=== PATIENT | female | born 1940 | race Caucasian/White ===

== ENCOUNTER → 2017-02-16 | Outpatient (CLI) | payer OTHER, BC ==
[~2017-02-16] VITALS: Ht 160 cm; Wt 61.2 kg
[~2017-02-16] MED LIST: ASCORBIC ACID500 M3 PO; ASPIR-LOW81 MG PO; ASPIRIN81 M2 PO; BASAGLAR K100 UNIT/1 SC; COLESTIPOL HCL1 GM PO; CYMBALTA20 MG PO; DITROPAN5 MG PO; ERGOCALCIF50000 UNIT PO; ESCITALOPRAM OX20 MG PO; FLAGYL500 MG PO; FLORASTOR250 MG PO; LANTUS 3 M100 UNITS1 SC; LEVAQUIN500 MG PO; LEXAPRO20 MG PO; LISINOPRIL5 MG PO; MATZIM LA360 MG PO; MIRALAX255 GM PO; NAPROSYN375 MG PO; OMEPRAZOLE40 M1 PO; ONDANSETRON HCL4 MG PO; OXAYDO5 MG PO; OXYCODONE HCL5 MG PO; PEPCID20 MG PO; PREDNISONE20 MG PO; PRESERVISION T1 EACH PO; PROAIR HFA8.5 GM IH; QUESTRAN PACKET4 GM PO; ROXICODONE5 MG PO; SIMVASTATIN10 MG PO; TRAZODONE HCL50 MG PO; VITAMIN D2 PO
[2017-02-16 11:13] LABS: HEMATOCRIT 40.1 % (36.0-46.0); MCH 30.4 PG (29.0-34.0); MCHC 34.9 G/DL (30.0-36.0); RBC DIS.WIDTH-CV 18.9 % (11.8-14.6); RBC DIS.WIDTH-SD 57.5 % (39-53); RED BLOOD COUNT 4.61 M/uL (3.80-5.20); WHITE BLOOD COUNT 12.8 K/uL (4.1-10.2)
[2017-02-16 11:40] LABS: POINT-OF-CARE METER ID UU13113694
[2017-02-16 11:46] LABS: ALKALINE PHOSPHATASE 540 IU/L (3-129); ANION GAP 7 MEQ/L (2-14); CHLORIDE 106 MEQ/L (99-109); GFR ESTIMATE (CALCULATED) 42 mL/min/; GLUCOSE 87 mg/dL (70-99); HEMATOLOGY COMMENT 1 SN; PLAT.SUFFICIENCY ADEQUATE; PLATELET COUNT 391 K/uL (156-360); POTASSIUM 3.5 MEQ/L (3.7-5.4); SAMPLE HEMOLYSIS CHECK 0; SAMPLE ICTERIC CHECK 2; SAMPLE LIPEMIA CHECK 0; SODIUM 140 MEQ/L (136-147); TOTAL BILIRUBIN 9.3 MG/DL (0.0-1.0); UREA NITROGEN (BUN) 13 mg/dL (9-23)
[2017-02-16 12:40] LABS: IRON 79 MCG/DL (35-150)
[2017-02-16 12:58] LABS: FERRITIN 264 NG/ML (10-291)
[2017-02-16 12:59] LABS: HBSG INDEX 0.22; HPCA INDEX 0.08
[2017-02-16 13:00] LABS: ANTI-HEPATITIS A VIRUS (IGM) Nonreactive; HAV INDEX 0.13
[2017-02-16 13:01] LABS: ANTI-HEPATITIS B CORE (IGM) Nonreactive; HBC IgM INDEX 0.09
[2017-02-16 13:34] LABS: DIRECT BILIRUBIN 5.8 mg/dL (0.0-0.3)
[2017-02-16 14:38] LABS: POINT-OF-CARE METER ID UU13113819
[2017-02-16 15:05] LABS: POINT-OF-CARE METER ID UU13113819
[2017-02-17 15:08] LABS: ALPHA-1-ANTITRYPSIN+ 190 mg/dL (83-199)
== END | disposition home or self-care (01) ==
LOC: AMB 10:27
PROVIDERS: Anesthesiology; Internal Medicine Gastroenterology
DX: K63.89 Other specified diseases of intestine (principal); K83.1 Obstruction of bile duct; R17 Unspecified jaundice; Z85.07 Personal history of malignant neoplasm of pancreas; I12.9 Hypertensive chronic kidney disease with stage 1 through stage 4 chronic kidney disease, or unspecified chronic kidney disease; E11.22 Type 2 diabetes mellitus with diabetic chronic kidney disease; N18.3 Chronic kidney disease, stage 3 (moderate); E78.5 Hyperlipidemia, unspecified; E21.3 Hyperparathyroidism, unspecified; Z87.891 Personal history of nicotine dependence; Z79.82 Long term (current) use of aspirin; Z79.891 Long term (current) use of opiate analgesic
CPT/HCPCS: 80053; 80074; 82103 90; 82247; 82248; 82378; 82390; 82728; 82948; 83010 90; 83540; 84466; 85027; 86038; 86301 90; 87081; 88305; 93005; C1726; J0330; J2405; J3010

== ENCOUNTER → 2017-02-22 | Outpatient (CLI) | payer OTHER, BC ==
[2017-02-22 10:46] LABS: PROTHROMBIN TIME 10.5 (9.2-11.2); PTT 25.8 (25-32)
== END | disposition home or self-care (01) ==
LOC: OPR 09:44 → EDSTATUS 10:00 → OPR 10:00
PROVIDERS: Internal Medicine Gastroenterology
PROC: 0F753DZ Dilation of Right Hepatic Duct with Intraluminal Device, Percutaneous Approach (ICD-10-PCS; principal; 2017-02-22)
DX: K83.1 Obstruction of bile duct (principal); R11.0 Nausea; R17 Unspecified jaundice; I12.9 Hypertensive chronic kidney disease with stage 1 through stage 4 chronic kidney disease, or unspecified chronic kidney disease; E11.22 Type 2 diabetes mellitus with diabetic chronic kidney disease; Z85.07 Personal history of malignant neoplasm of pancreas; N18.9 Chronic kidney disease, unspecified; E78.5 Hyperlipidemia, unspecified; Z87.891 Personal history of nicotine dependence; E21.1 Secondary hyperparathyroidism, not elsewhere classified; Z79.82 Long term (current) use of aspirin; Z79.899 Other long term (current) drug therapy
CPT/HCPCS: 47540; 85610; 85730; C1729; C1769; C1894; J1200; J2250; J2310; J2405; J3010

== ENCOUNTER 2017-02-27 12:42 | Inpatient (IN) | payer OTHER, BC ==
[~2017-02-27] VITALS: Ht 160 cm; Wt 61.6 kg
[2017-02-27 13:14] LABS: POINT-OF-CARE METER ID UU13113778
[2017-02-27 14:17] LABS: HEMATOCRIT 38.2 % (36.0-46.0); MCH 29.4 PG (29.0-34.0); MCHC 34.3 G/DL (30.0-36.0); MCV 85.8 FL (83-99); MEAN PLAT.VOLUME 11.1 uM^3 (9.5-12.4); NRBC (%) 0.2 /100 WBC (0-0); PLATELET COUNT 420 K/uL (156-360); RBC DIS.WIDTH-CV 17.7 % (11.8-14.6); RBC DIS.WIDTH-SD 53.2 % (39-53); RED BLOOD COUNT 4.45 M/uL (3.80-5.20); WHITE BLOOD COUNT 16.4 K/uL (4.1-10.2)
[2017-02-27 14:28] LABS: CHLORIDE 101 mEq/L (99-109); POTASSIUM 3.5 mEq/L (3.7-5.4); SODIUM 134 mEq/L (136-147)
[2017-02-27 14:30] LABS: GLUCOSE 229 mg/dL (70-99)
[2017-02-27 14:31] LABS: ANION GAP 6 MEQ/L (2-14)
[2017-02-27 14:32] LABS: TOTAL BILIRUBIN 16.9 mg/dL (0.0-1.0)
[2017-02-27 14:33] LABS: ALKALINE PHOSPHATASE 591 IU/L (3-129); GFR ESTIMATE (CALCULATED) 46 mL/min/
[2017-02-27 14:35] LABS: UREA NITROGEN (BUN) 23 mg/dL (9-23)
[2017-02-27 17:40] LABS: ADD MIUA? YES; BILIRUBIN MODERATE; BLOOD NEGATIVE; COLOR AMBER ((YELLOW)); GLUCOSE (STRIP) NEGATIVE; KETONES NEGATIVE; LEUKOCYTES NEGATIVE; NITRITE NEGATIVE; PROTEIN (STRIP) NEGATIVE; SPECIFIC GRAVITY 1.034 (1.000-1.030)
[2017-02-27 17:46] LABS: BACTERIA RARE /HPF; CALCIUM OXALATE CRYSTALS 2+ /HPF; EPITHELIAL CELLS RARE /HPF; MUCUS TRACE /LPF; RED BLOOD CELLS 0-5 /HPF (0-5); UCUL ADDED? NO
[2017-02-27 19:16] LABS: ICTOTEST POSITIVE
[2017-02-27 21:53] VITALS: BP 159/74
[2017-02-27 23:58] LABS: POINT-OF-CARE METER ID UU13113725; POINT-OF-CARE USER ID 611181321
[2017-02-28 02:45] VITALS: BP 130/61
[2017-02-28 06:29] LABS: HEMATOCRIT 33.3 % (36.0-46.0); MCH 29.8 PG (29.0-34.0); MCHC 34.2 G/DL (30.0-36.0); MCV 87.2 FL (83-99); NRBC (%) 0.2 /100 WBC (0-0); RBC DIS.WIDTH-SD 55.4 % (39-53); RED BLOOD COUNT 3.82 M/uL (3.80-5.20); WHITE BLOOD COUNT 16.1 K/uL (4.1-10.2)
[2017-02-28 06:55] LABS: ALKALINE PHOSPHATASE 439 IU/L (3-129); ANION GAP 7 MEQ/L (2-14); CHLORIDE 103 MEQ/L (99-109); GFR ESTIMATE (CALCULATED) 46 mL/min/; SAMPLE HEMOLYSIS CHECK 0; SAMPLE ICTERIC CHECK 3; SAMPLE LIPEMIA CHECK 0; SODIUM 136 MEQ/L (136-147); TOTAL BILIRUBIN 12.8 MG/DL (0.0-1.0); UREA NITROGEN (BUN) 18 mg/dL (9-23)
[2017-02-28 07:00] LABS: GLUCOSE 119 mg/dL (70-99)
[2017-02-28 07:24] VITALS: BP 186/76
[2017-02-28 07:35] LABS: PLATELET COUNT 395 K/uL (156-360)
[2017-02-28 13:29] VITALS: BP 158/90
[2017-02-28] MEDS ORDERED: LO-DOSE ASPIRIN81 M1 PO (15:38)
[2017-02-28] MEDS ORDERED: CYMBALTA30 MG PO (15:38)
[2017-02-28 15:43] VITALS: BP 158/74
[2017-02-28 21:01] VITALS: BP 149/69
[2017-02-28 21:57] LABS: POINT-OF-CARE METER ID UU13113725
[2017-03-01 01:01] VITALS: BP 151/67
[2017-03-01 03:00] LABS: ADD MIUA? YES; BILIRUBIN SMALL; BLOOD NEGATIVE; COLOR AMBER ((YELLOW)); GLUCOSE (STRIP) NEGATIVE; KETONES NEGATIVE; LEUKOCYTES SMALL; NITRITE NEGATIVE; PROTEIN (STRIP) NEGATIVE; SPECIFIC GRAVITY 1.017 (1.000-1.030); UROBILINOGEN 0.2 MG/DL (0.2-1.0)
[2017-03-01 03:03] LABS: BACTERIA NONE SEEN /HPF; EPITHELIAL CELLS RARE /HPF; MUCUS TRACE /LPF; RED BLOOD CELLS 15-20 /HPF (0-5); UCUL ADDED? NO
[2017-03-01 06:34] LABS: POINT-OF-CARE METER ID UU13113725
[2017-03-01 07:02] LABS: HEMATOCRIT 32.1 % (36.0-46.0); MCH 30.1 PG (29.0-34.0); MCHC 33.6 G/DL (30.0-36.0); MCV 89.4 FL (83-99); NRBC (%) 0.2 /100 WBC (0-0); RBC DIS.WIDTH-SD 58.4 % (39-53); RED BLOOD COUNT 3.59 M/uL (3.80-5.20); WHITE BLOOD COUNT 17.4 K/uL (4.1-10.2)
[2017-03-01 07:13] VITALS: BP 140/76
[2017-03-01 07:23] LABS: ALKALINE PHOSPHATASE 374 IU/L (3-129); ANION GAP 7 MEQ/L (2-14); CHLORIDE 103 MEQ/L (99-109); GFR ESTIMATE (CALCULATED) 46 mL/min/; GLUCOSE 155 mg/dL (70-99); MAGNESIUM 1.9 mg/dl (1.3-2.7); SAMPLE HEMOLYSIS CHECK 0; SAMPLE ICTERIC CHECK 3; SAMPLE LIPEMIA CHECK 0; SODIUM 136 MEQ/L (136-147); TOTAL BILIRUBIN 12.4 MG/DL (0.0-1.0); UREA NITROGEN (BUN) 13 mg/dL (9-23)
[2017-03-01 07:31] LABS: MEAN PLAT.VOLUME 11.5 uM^3 (9.5-12.4); PLAT.SUFFICIENCY INCREASED; PLATELET COUNT 369 K/uL (156-360)
[2017-03-01 11:23] VITALS: BP 165/71
[2017-03-01] MEDS ORDERED: ZOSYN 3.3753.375 GM IV (14:45)
[2017-03-01 15:00] VITALS: BP 138/79
[2017-03-01 19:24] VITALS: BP 165/72
== END 2017-03-01 22:02 | disposition short-term general hospital (02) | DRG 907 ==
LOC: EME 12:42 → EDOF 20:03 → 5EAST 20:03
PROVIDERS: Internal Medicine
DX: T85.698A Other mechanical complication of other specified internal prosthetic devices, implants and grafts, initial encounter (principal); R17 Unspecified jaundice; E87.1 Hypo-osmolality and hyponatremia; F33.9 Major depressive disorder, recurrent, unspecified; K83.1 Obstruction of bile duct; K86.89 Other specified diseases of pancreas; E11.9 Type 2 diabetes mellitus without complications; E78.5 Hyperlipidemia, unspecified; E87.6 Hypokalemia; I10 Essential (primary) hypertension; K21.9 Gastro-esophageal reflux disease without esophagitis; F41.9 Anxiety disorder, unspecified; L29.9 Pruritus, unspecified; Z79.4 Long term (current) use of insulin; Z87.891 Personal history of nicotine dependence; Z85.07 Personal history of malignant neoplasm of pancreas; Z79.82 Long term (current) use of aspirin; Z86.73 Personal history of transient ischemic attack (TIA), and cerebral infarction without residual deficits; Z90.49 Acquired absence of other specified parts of digestive tract; Z96.612 Presence of left artificial shoulder joint; Z96.653 Presence of artificial knee joint, bilateral
CPT/HCPCS: 47535; 74177; 74183; 80053; 81003; 82140; 82948; 83735; 85027; 87040; 99281; 99285; C1729; C1769; J1200; J1644; J1815; J2250; J2405; J2543; J3010; J3480; J7030; J7050; S0028

== ENCOUNTER 2017-03-12 00:23 | Emergency (ER) | payer OTHER, BC ==
[~2017-03-12] VITALS: Ht 160 cm; Wt 60.0 kg
[~2017-03-12 00:23] MED LIST changes: +CYMBALTA30 MG PO; +LO-DOSE ASPIRIN81 M1 PO; +ZOSYN 3.3753.375 GM IV
[2017-03-12 01:13] LABS: HEMATOCRIT 36.2 % (36.0-46.0); MCH 29.5 PG (29.0-34.0); MCHC 32.6 G/DL (30.0-36.0); MCV 90.5 FL (83-99); MEAN PLAT.VOLUME 9.9 uM^3 (9.5-12.4); RBC DIS.WIDTH-SD 50.1 % (39-53); WHITE BLOOD COUNT 13.7 K/uL (4.1-10.2)
[2017-03-12 01:14] LABS: PLATELET COUNT 558 K/uL (156-360)
[2017-03-12 01:19] LABS: CHLORIDE 99 mEq/L (99-109); POTASSIUM 4.4 mEq/L (3.7-5.4); SODIUM 133 mEq/L (136-147)
[2017-03-12 01:21] LABS: GLUCOSE 283 mg/dL (70-99)
[2017-03-12 01:23] LABS: ANION GAP 8 MEQ/L (2-14)
[2017-03-12 01:25] LABS: ALKALINE PHOSPHATASE 218 IU/L (3-129); GFR ESTIMATE (CALCULATED) 42 mL/min/
[2017-03-12 01:26] LABS: UREA NITROGEN (BUN) 14 mg/dL (9-23)
[2017-03-12 01:27] LABS: DIRECT BILIRUBIN 3.9 mg/dL (0.0-0.3)
[2017-03-12 14:29] VITALS: BP 144/84
== END 2017-03-12 15:16 ==
LOC: EME → EDBD 00:23 → EME 15:16
PROVIDERS: Emergency Medicine
PROC: 0F2BX0Z Change Drainage Device in Hepatobiliary Duct, External Approach (ICD-10-PCS; principal; 2017-03-12)
DX: Z48.03 Encounter for change or removal of drains (principal); I10 Essential (primary) hypertension; E11.9 Type 2 diabetes mellitus without complications; E78.5 Hyperlipidemia, unspecified; K21.9 Gastro-esophageal reflux disease without esophagitis; Z87.891 Personal history of nicotine dependence; Z90.49 Acquired absence of other specified parts of digestive tract; Z85.07 Personal history of malignant neoplasm of pancreas
CPT/HCPCS: 47536; 74000; 80053; 82248; 85027; 99281; 99284; C1729; C1769; J0696; J3010; J7050

== ENCOUNTER 2017-03-25 16:04 | Inpatient (IN) | payer OTHER, BC ==
[~2017-03-25] VITALS: Ht 160 cm; Wt 57.8 kg
[2017-03-25 17:00] LABS: CHLORIDE 94 mEq/L (99-109); POTASSIUM 4.9 mEq/L (3.7-5.4)
[2017-03-25 17:03] LABS: ANION GAP 10 MEQ/L (2-14)
[2017-03-25 17:04] LABS: TOTAL BILIRUBIN 3.2 mg/dL (0.0-1.0)
[2017-03-25 17:05] LABS: ALKALINE PHOSPHATASE 220 IU/L (3-129)
[2017-03-25 17:06] LABS: GFR ESTIMATE (CALCULATED) 17 mL/min/
[2017-03-25 17:07] LABS: UREA NITROGEN (BUN) 50 mg/dL (9-23)
[2017-03-25 17:10] LABS: GLUCOSE 703 mg/dL (70-99); SODIUM 119 mEq/L (136-147)
[2017-03-25 17:13] LABS: GLUCOSE 708 mg/dL (70-99)
[2017-03-25 17:15] LABS: HEMATOCRIT 42.6 % (36.0-46.0); MCH 29.1 PG (29.0-34.0); MCHC 33.6 G/DL (30.0-36.0); MCV 86.6 FL (83-99); MEAN PLAT.VOLUME 10.8 uM^3 (9.5-12.4); NRBC (%) 0.2 /100 WBC (0-0); PLATELET COUNT 469 K/uL (156-360); RBC DIS.WIDTH-CV 14.1 % (11.8-14.6); RBC DIS.WIDTH-SD 44.8 % (39-53); RED BLOOD COUNT 4.92 M/uL (3.80-5.20); WHITE BLOOD COUNT 15.7 K/uL (4.1-10.2)
[2017-03-25 17:30] LABS: ADD MIUA? YES; BILIRUBIN NEGATIVE; BLOOD NEGATIVE; COLOR YELLOW ((YELLOW)); GLUCOSE (STRIP) >=500; KETONES NEGATIVE; LEUKOCYTES LARGE; NITRITE NEGATIVE; PROTEIN (STRIP) 30; SPECIFIC GRAVITY 1.017 (1.000-1.030); UROBILINOGEN 0.2 MG/DL (0.2-1.0)
[2017-03-25 17:36] LABS: BACTERIA RARE /HPF; BUDDING YEAST 1+; EPITHELIAL CELLS RARE /HPF; HYALINE CASTS 0-5 /LPF; MUCUS 4+ /LPF; RED BLOOD CELLS 0-5 /HPF (0-5); UCUL ADDED? YES; UNCLASSIFIED CRYSTALS 2+ /HPF; WHITE BLOOD CELLS TNTC /HPF (0-5); WHITE BLOOD CELLS CLUMP FEW /HPF (0-5)
[2017-03-25 17:54] LABS: SAMPLE HEMOLYSIS CHECK 0; SAMPLE ICTERIC CHECK 1; SAMPLE LIPEMIA CHECK 0
[2017-03-25] MEDS ORDERED: LANTUS 3 M100 UNITS1 SC (18:45)
[2017-03-25] MEDS ORDERED: NOVOLOG PE100 UNITS/ SC (18:46)
[2017-03-25 19:13] LABS: POINT-OF-CARE METER ID UU13113747
[2017-03-25] MEDS ORDERED: ZOCOR10 MG PO (19:30)
[2017-03-25] MEDS ORDERED: GAVILAX17 GM PO (19:32)
[2017-03-25] MEDS ORDERED: NYSTATIN15 GM TP (19:33)
[2017-03-25] MEDS ORDERED: ZOFRAN4 MG PO (19:33)
[2017-03-25] MEDS ORDERED: CHOLESTYRAMINE L4 GM PO (19:35)
[2017-03-25] MEDS ORDERED: LANTUS 3 M100 UNITS1 SQ (19:39)
[2017-03-25 20:17] LABS: POINT-OF-CARE METER ID UU13113747
[2017-03-25 20:54] LABS: POINT-OF-CARE METER ID UU13113747
[2017-03-25 21:27] VITALS: BP 140/65
[2017-03-25 21:47] LABS: CARBON DIOXIDE (BICARBONATE) 20.2 MEQ/L (20-31)
[2017-03-25 22:19] LABS: ALKALINE PHOSPHATASE 187 IU/L (3-129); ANION GAP 9 MEQ/L (2-14); CHLORIDE 101 MEQ/L (99-109); GLUCOSE 360 mg/dL (70-99); MAGNESIUM 2.1 mg/dl (1.3-2.7); POTASSIUM 4.1 MEQ/L (3.7-5.4); SAMPLE HEMOLYSIS CHECK 0; SAMPLE ICTERIC CHECK 0; SAMPLE LIPEMIA CHECK 0; UREA NITROGEN (BUN) 46 mg/dL (9-23)
[2017-03-25 22:21] LABS: GFR ESTIMATE (CALCULATED) 27 mL/min/; SODIUM 127 MEQ/L (136-147); TOTAL BILIRUBIN 3.1 MG/DL (0.0-1.0)
[2017-03-25 22:28] LABS: BASE EXCESS -9.2 mEq/L (-3 to +3); BICARBONATE 16.2 mEq/L (22-26); CARBOXY HGB 2.1 % (0-5); COMMENTS - BLOOD GASES A+C+; DEVICE RA; METHEMOGLOBIN 1.6 % (0-1.5); PCO2 33 mm Hg (35-45); PO2 71 mm Hg (80-100); SITE RR
[2017-03-26] VITALS (7 sets, daily range): BP systolic 121–152; BP diastolic 59–70
[2017-03-26 01:32] LABS: METH RESISTANT S AUREUS PCR POSITIVE (NEGATIVE)
[2017-03-26 01:39] LABS: PROBE CHECK PASS
[2017-03-26 02:29] LABS: POTASSIUM 3.9 mEq/L (3.7-5.4); SODIUM 132 mEq/L (136-147)
[2017-03-26 02:30] LABS: MAGNESIUM 1.9 mg/dL (1.3-2.7)
[2017-03-26 02:33] LABS: ANION GAP 7 MEQ/L (2-14)
[2017-03-26 02:34] LABS: TOTAL BILIRUBIN 2.8 mg/dL (0.0-1.0)
[2017-03-26 02:35] LABS: ALKALINE PHOSPHATASE 182 IU/L (3-129); GFR ESTIMATE (CALCULATED) 27 mL/min/
[2017-03-26 02:36] LABS: CHLORIDE 109 mEq/L (99-109); GLUCOSE 168 mg/dL (70-99)
[2017-03-26 02:37] LABS: UREA NITROGEN (BUN) 44 mg/dL (9-23)
[2017-03-26 02:39] LABS: POINT-OF-CARE METER ID UU14174216
[2017-03-26 04:21] LABS: POINT-OF-CARE METER ID UU14174216
[2017-03-26 05:45] LABS: BASOPHIL COUNT 0.1 K/uL (0-0.1); EOSINOPHIL (%) 3.1 % (0-5); EOSINOPHIL COUNT 0.7 K/uL (0-0.3); HEMATOCRIT 36.6 % (36.0-46.0); IMMATURE GRANULOCYTE (%) 1.3 % (0.0-0.7); IMMATURE GRANULOCYTE COUNT 0.3 K/uL; INSTRUMENT ABS NEUTROPHIL CT 13.9 K/uL; LYMPHOCYTE COUNT 3.7 K/uL (1.0-2.8); MCHC 34.7 G/DL (30.0-36.0); MCV 86.3 FL (83-99); MEAN PLAT.VOLUME 10.8 uM^3 (9.5-12.4); MONOCYTE (%) 10.5 % (3-12); MONOCYTE COUNT 2.2 K/uL (0-0.8); NEUTROPHIL (%) 66.8 % (45-76); NEUTROPHIL COUNT 13.9 K/uL (1.8-6.4); PLATELET COUNT 421 K/uL (156-360); RBC DIS.WIDTH-CV 13.8 % (11.8-14.6); RBC DIS.WIDTH-SD 43.2 % (39-53); RED BLOOD COUNT 4.24 M/uL (3.80-5.20); WHITE BLOOD COUNT 20.7 K/uL (4.1-10.2)
[2017-03-26 06:18] LABS: ALKALINE PHOSPHATASE 156 IU/L (3-129); ANION GAP 8 MEQ/L (2-14); CHLORIDE 108 MEQ/L (99-109); GFR ESTIMATE (CALCULATED) 33 mL/min/; POTASSIUM 4.2 MEQ/L (3.7-5.4); SAMPLE HEMOLYSIS CHECK 0; SAMPLE ICTERIC CHECK 0; SAMPLE LIPEMIA CHECK 0; SODIUM 134 MEQ/L (136-147); TOTAL BILIRUBIN 2.7 MG/DL (0.0-1.0); UREA NITROGEN (BUN) 41 mg/dL (9-23)
[2017-03-26 06:19] LABS: GLUCOSE 85 mg/dL (70-99)
[2017-03-26 08:17] LABS: POINT-OF-CARE USER ID ENVKC36
[2017-03-26 11:35] LABS: POINT-OF-CARE METER ID UU13113698
[2017-03-26 16:40] LABS: POINT-OF-CARE USER ID ENVKC36
[2017-03-26 21:24] LABS: POINT-OF-CARE METER ID UU13113698
[2017-03-27 04:03] VITALS: BP 121/67
[2017-03-27 06:12] LABS: BASOPHIL COUNT 0.1 K/uL (0-0.1); EOSINOPHIL (%) 4.2 % (0-5); EOSINOPHIL COUNT 0.7 K/uL (0-0.3); HEMATOCRIT 36.4 % (36.0-46.0); IMMATURE GRANULOCYTE (%) 1.6 % (0.0-0.7); IMMATURE GRANULOCYTE COUNT 0.3 K/uL; LYMPHOCYTE COUNT 3.9 K/uL (1.0-2.8); MCH 28.7 PG (29.0-34.0); MCHC 33.2 G/DL (30.0-36.0); MCV 86.3 FL (83-99); MEAN PLAT.VOLUME 10.3 uM^3 (9.5-12.4); MONOCYTE (%) 11.1 % (3-12); MONOCYTE COUNT 1.9 K/uL (0-0.8); NEUTROPHIL (%) 59.4 % (45-76); NRBC (%) 0.1 /100 WBC (0-0); PLATELET COUNT 411 K/uL (156-360); RBC DIS.WIDTH-CV 13.8 % (11.8-14.6); RBC DIS.WIDTH-SD 43.1 % (39-53); RED BLOOD COUNT 4.22 M/uL (3.80-5.20); WHITE BLOOD COUNT 16.9 K/uL (4.1-10.2)
[2017-03-27 07:01] LABS: ALKALINE PHOSPHATASE 133 IU/L (3-129); ANION GAP 6 MEQ/L (2-14); CHLORIDE 109 MEQ/L (99-109); GFR ESTIMATE (CALCULATED) 36 mL/min/; MAGNESIUM 1.8 mg/dl (1.3-2.7); POTASSIUM 4.4 MEQ/L (3.7-5.4); SAMPLE HEMOLYSIS CHECK 0; SAMPLE ICTERIC CHECK 0; SAMPLE LIPEMIA CHECK 0; SODIUM 134 MEQ/L (136-147); TOTAL BILIRUBIN 2.3 MG/DL (0.0-1.0); UREA NITROGEN (BUN) 28 mg/dL (9-23)
[2017-03-27 07:03] LABS: GLUCOSE 151 mg/dL (70-99)
[2017-03-27 07:28] VITALS: BP 146/75
[2017-03-27 08:25] LABS: POINT-OF-CARE METER ID UU13113781
[2017-03-27 11:35] VITALS: BP 142/80
[2017-03-27 12:03] LABS: POINT-OF-CARE METER ID UU13113781
[2017-03-27 15:48] VITALS: BP 155/68
[2017-03-27 20:13] VITALS: BP 152/64
[2017-03-27 23:53] VITALS: BP 142/64
[2017-03-28 04:01] VITALS: BP 150/66
[2017-03-28 07:07] LABS: ANION GAP 6 MEQ/L (2-14); CHLORIDE 111 MEQ/L (99-109); GFR ESTIMATE (CALCULATED) 42 mL/min/; GLUCOSE 100 mg/dL (70-99); POTASSIUM 3.9 MEQ/L (3.7-5.4); SAMPLE HEMOLYSIS CHECK 0; SAMPLE ICTERIC CHECK 0; SAMPLE LIPEMIA CHECK 0; SODIUM 138 MEQ/L (136-147); UREA NITROGEN (BUN) 18 mg/dL (9-23)
[2017-03-28 07:15] VITALS: BP 150/72
[2017-03-28 10:44] LABS: Estimated Average Glucose 180 mg/dL (70-123); HEMOGLOBIN A1c (GLYCOHEMOGLOB) 7.9 % HGB (Below 5.7)
[2017-03-28 18:27] VITALS: BP 168/60
[2017-03-28 21:43] LABS: POINT-OF-CARE METER ID UU14208750
[2017-03-28 23:51] VITALS: BP 145/70
[2017-03-29 06:55] LABS: BASOPHIL COUNT 0.1 K/uL (0-0.1); EOSINOPHIL (%) 5.1 % (0-5); EOSINOPHIL COUNT 0.8 K/uL (0-0.3); HEMATOCRIT 39.5 % (36.0-46.0); IMMATURE GRANULOCYTE (%) 2.7 % (0.0-0.7); IMMATURE GRANULOCYTE COUNT 0.4 K/uL; INSTRUMENT ABS NEUTROPHIL CT 9.2 K/uL; LYMPHOCYTE COUNT 3.6 K/uL (1.0-2.8); MCH 28.6 PG (29.0-34.0); MCHC 33.4 G/DL (30.0-36.0); MCV 85.7 FL (83-99); MEAN PLAT.VOLUME 10.5 uM^3 (9.5-12.4); MONOCYTE COUNT 1.8 K/uL (0-0.8); NEUTROPHIL (%) 57.6 % (45-76); NEUTROPHIL COUNT 9.2 K/uL (1.8-6.4); NRBC (%) 0.1 /100 WBC (0-0); PLATELET COUNT 434 K/uL (156-360); RBC DIS.WIDTH-CV 14.2 % (11.8-14.6); RBC DIS.WIDTH-SD 44.2 % (39-53); RED BLOOD COUNT 4.61 M/uL (3.80-5.20); WHITE BLOOD COUNT 15.9 K/uL (4.1-10.2)
[2017-03-29 07:00] VITALS: BP 178/82
[2017-03-29 07:24] LABS: ALKALINE PHOSPHATASE 118 IU/L (3-129); ANION GAP 8 MEQ/L (2-14); CHLORIDE 109 MEQ/L (99-109); GFR ESTIMATE (CALCULATED) 51 mL/min/; POTASSIUM 4.1 MEQ/L (3.7-5.4); SAMPLE HEMOLYSIS CHECK 0; SAMPLE ICTERIC CHECK 0; SAMPLE LIPEMIA CHECK 0; SODIUM 138 MEQ/L (136-147); TOTAL BILIRUBIN 2.2 MG/DL (0.0-1.0); UREA NITROGEN (BUN) 17 mg/dL (9-23)
[2017-03-29 07:25] LABS: GLUCOSE 163 mg/dL (70-99)
[2017-03-29] MEDS ORDERED: MAXIPIME2 GM IV (11:11)
== END 2017-03-29 14:20 | DRG 640 ==
LOC: EME 16:04 → 2EAST 19:29 → EDOF 19:29 → 4EAST 19:29 → CANRESERV 19:35 → ENRESERV 19:35 → EDOF 19:54 → ENRESERV 19:56 → 4EAST 20:52 → ENRESERV 03-27 10:28 → 2EAST 03-27 15:02
PROVIDERS: Emergency Medicine; Hospitalist; Internal Medicine; Internal Medicine Nephrology; Physician Assistant Medical
DX: E89.1 Postprocedural hypoinsulinemia (principal); E13.65 Other specified diabetes mellitus with hyperglycemia; A41.89 Other specified sepsis; R65.20 Severe sepsis without septic shock; T85.898A Other specified complication of other internal prosthetic devices, implants and grafts, initial encounter; Y83.1 Surgical operation with implant of artificial internal device as the cause of abnormal reaction of the patient, or of later complication, without mention of misadventure at the time of the procedure; K83.0 Cholangitis; N39.0 Urinary tract infection, site not specified; N17.9 Acute kidney failure, unspecified; E87.2 Acidosis; E86.0 Dehydration; E87.1 Hypo-osmolality and hyponatremia; E83.52 Hypercalcemia; C25.9 Malignant neoplasm of pancreas, unspecified; E78.5 Hyperlipidemia, unspecified; E21.1 Secondary hyperparathyroidism, not elsewhere classified; I10 Essential (primary) hypertension; F32.9 Major depressive disorder, single episode, unspecified; K21.9 Gastro-esophageal reflux disease without esophagitis; E04.2 Nontoxic multinodular goiter; E55.9 Vitamin D deficiency, unspecified; R91.1 Solitary pulmonary nodule; Z96.653 Presence of artificial knee joint, bilateral; Z87.891 Personal history of nicotine dependence; Z79.4 Long term (current) use of insulin; Z79.82 Long term (current) use of aspirin; Z90.411 Acquired partial absence of pancreas; Z90.81 Acquired absence of spleen; Z91.14 Patient's other noncompliance with medication regimen; Z88.2 Allergy status to sulfonamides
CPT/HCPCS: 36600; 80048; 80053; 81003; 82010; 82140; 82803; 82948; 83036; 83605; 83735; 84100; 84999; 85025; 85027; 87040; 87077; 87086; 87186; 87641; 87801; 97530 GO; 97530 GP; 99281; 99285; C1894; J0692; J1644; J1815; J2270; J2405; J2543; J3480; J7030; J7050; J7120; S0030

== ENCOUNTER 2017-04-17 18:51 | Emergency (ER) | payer OTHER, BC ==
[~2017-04-17] VITALS: Ht 160 cm; Wt 52.3 kg
[~2017-04-17 18:51] MED LIST changes: +CHOLESTYRAMINE L4 GM PO; +GAVILAX17 GM PO; +LANTUS 3 M100 UNITS1 SQ; +MAXIPIME2 GM IV; +NOVOLOG PE100 UNITS/ SC; +NYSTATIN15 GM TP; +ZOCOR10 MG PO; +ZOFRAN4 MG PO
[2017-04-17 19:12] LABS: HEMATOCRIT 44.2 % (36.0-46.0); MCH 28.9 PG (29.0-34.0); MCHC 34.2 G/DL (30.0-36.0); MCV 84.5 FL (83-99); MEAN PLAT.VOLUME 10.4 uM^3 (9.5-12.4); NRBC (%) 0.1 /100 WBC (0-0); PLATELET COUNT 336 K/uL (156-360); RBC DIS.WIDTH-CV 14.4 % (11.8-14.6); RBC DIS.WIDTH-SD 44.2 % (39-53); RED BLOOD COUNT 5.23 M/uL (3.80-5.20); WHITE BLOOD COUNT 14.1 K/uL (4.1-10.2)
[2017-04-17 19:23] LABS: CHLORIDE 106 mEq/L (99-109); SODIUM 130 mEq/L (136-147)
[2017-04-17 19:24] LABS: POTASSIUM 4.7 mEq/L (3.7-5.4)
[2017-04-17 19:25] LABS: GLUCOSE 378 mg/dL (70-99)
[2017-04-17 19:27] LABS: ANION GAP 10 MEQ/L (2-14); TOTAL BILIRUBIN 1.3 mg/dL (0.0-1.0)
[2017-04-17 19:29] LABS: ALKALINE PHOSPHATASE 193 IU/L (3-129); GFR ESTIMATE (CALCULATED) 31 mL/min/
[2017-04-17 19:30] LABS: UREA NITROGEN (BUN) 42 mg/dL (9-23)
[2017-04-17 19:32] LABS: LIPASE 22 U/L (1.0-51.0)
[2017-04-17 21:10] VITALS: BP 95/87
== END 2017-04-17 21:13 ==
LOC: EME 18:51
DX: E11.65 Type 2 diabetes mellitus with hyperglycemia (principal); E78.5 Hyperlipidemia, unspecified; K21.9 Gastro-esophageal reflux disease without esophagitis; Z79.4 Long term (current) use of insulin; Z79.82 Long term (current) use of aspirin; Z87.891 Personal history of nicotine dependence
CPT/HCPCS: 80053; 81003; 83690; 85027; 93005; 99281; 99285; J1815; J7030

== ENCOUNTER 2017-05-05 09:20 | Day surgery (SDC) | payer OTHER, BC ==
[~2017-05-05] VITALS: Ht 160 cm; Wt 58.0 kg
== END 2017-05-05 11:03 | disposition home or self-care (01) ==
LOC: CATH 09:20
PROC: 0JH60WZ Insertion of Totally Implantable Vascular Access Device into Chest Subcutaneous Tissue and Fascia, Open Approach (ICD-10-PCS; principal; 2017-05-05)
PROC: B5181ZA Fluoroscopy of Superior Vena Cava using Low Osmolar Contrast, Guidance (ICD-10-PCS; principal; 2017-05-05)
PROC: B543ZZA Ultrasonography of Right Jugular Veins, Guidance (ICD-10-PCS; principal; 2017-05-05)
PROC: 02HV33Z Insertion of Infusion Device into Superior Vena Cava, Percutaneous Approach (ICD-10-PCS; principal; 2017-05-05)
DX: I87.8 Other specified disorders of veins (principal); C25.9 Malignant neoplasm of pancreas, unspecified; Z87.891 Personal history of nicotine dependence; E11.9 Type 2 diabetes mellitus without complications; I10 Essential (primary) hypertension; Z79.4 Long term (current) use of insulin; Z88.1 Allergy status to other antibiotic agents; Z88.8 Allergy status to other drugs, medicaments and biological substances
CPT/HCPCS: C1752; C1894; J0690; J1644; J2250; J3010; S0020

== ENCOUNTER 2017-05-30 11:02 | Emergency (ER) | payer OTHER, BC ==
[~2017-05-30] VITALS: Ht 157.5 cm; Wt 58.2 kg
[2017-05-30 11:27] LABS: POINT-OF-CARE METER ID UU13113778
[2017-05-30 11:56] LABS: EOSINOPHIL (%) 0.2 % (0-5); HEMATOCRIT 35.6 % (36.0-46.0); IMMATURE GRANULOCYTE (%) 1.7 % (0.0-0.7); IMMATURE GRANULOCYTE COUNT 0.3 K/uL; INSTRUMENT ABS NEUTROPHIL CT 12.1 K/uL; LYMPHOCYTE COUNT 1.6 K/uL (1.0-2.8); MCH 27.8 PG (29.0-34.0); MCHC 32.3 G/DL (30.0-36.0); MCV 86.2 FL (83-99); MEAN PLAT.VOLUME 9.7 uM^3 (9.5-12.4); MONOCYTE (%) 8.9 % (3-12); MONOCYTE COUNT 1.4 K/uL (0-0.8); NEUTROPHIL (%) 78.6 % (45-76); NEUTROPHIL COUNT 12.1 K/uL (1.8-6.4); NRBC (%) 1.1 /100 WBC (0-0); RBC DIS.WIDTH-CV 16.1 % (11.8-14.6); RBC DIS.WIDTH-SD 48.8 % (39-53); RED BLOOD COUNT 4.13 M/uL (3.80-5.20); WHITE BLOOD COUNT 15.4 K/uL (4.1-10.2)
[2017-05-30 12:00] LABS: PLATELET COUNT 338 K/uL (156-360)
[2017-05-30 12:05] LABS: POINT-OF-CARE METER ID UU13113702
[2017-05-30 12:09] LABS: CHLORIDE 104 mEq/L (99-109); SODIUM 133 mEq/L (136-147)
[2017-05-30 12:11] LABS: GLUCOSE 212 mg/dL (70-99); INTER. NORMALIZED RATIO 1.1; PROTHROMBIN TIME 11.6 SEC (10.2-12.9)
[2017-05-30 12:13] LABS: ANION GAP 4 MEQ/L (2-14)
[2017-05-30 12:14] LABS: PTT 32.9 SEC (25-37)
[2017-05-30 12:15] LABS: GFR ESTIMATE (CALCULATED) 57 mL/min/
[2017-05-30 12:16] LABS: UREA NITROGEN (BUN) 16 mg/dL (9-23)
[2017-05-30 12:17] LABS: TROP-I INTERPRETATION NEGATIVE; TROPONIN-I < 0.01 ng/mL (0.0-0.30)
[2017-05-30 14:17] LABS: ADD MIUA? YES; BILIRUBIN NEGATIVE; BLOOD NEGATIVE; COLOR YELLOW ((YELLOW)); GLUCOSE (STRIP) 50; KETONES NEGATIVE; LEUKOCYTES SMALL; NITRITE NEGATIVE; PROTEIN (STRIP) NEGATIVE; UROBILINOGEN 0.2 MG/DL (0.2-1.0)
[2017-05-30 14:24] LABS: BACTERIA RARE /HPF; CALCIUM OXALATE CRYSTALS 1+ /HPF; EPITHELIAL CELLS RARE /HPF; HYALINE CASTS 0-5 /LPF; MUCUS TRACE /LPF; RED BLOOD CELLS 0-5 /HPF (0-5); UCUL ADDED? YES
[2017-05-30] MEDS ORDERED: CIPRO500 MG PO (14:37)
[2017-05-30 15:16] VITALS: BP 121/64
[2017-05-30 15:26] LABS: POINT-OF-CARE METER ID UU13113702
== END 2017-05-30 15:18 | disposition home or self-care (01) ==
LOC: EME 11:02
PROVIDERS: Emergency Medicine
DX: E11.649 Type 2 diabetes mellitus with hypoglycemia without coma (principal); N39.0 Urinary tract infection, site not specified; E87.6 Hypokalemia; E78.5 Hyperlipidemia, unspecified; I10 Essential (primary) hypertension; F32.9 Major depressive disorder, single episode, unspecified; F41.9 Anxiety disorder, unspecified; K21.9 Gastro-esophageal reflux disease without esophagitis; Z85.07 Personal history of malignant neoplasm of pancreas; Z90.81 Acquired absence of spleen; Z87.891 Personal history of nicotine dependence; Z79.4 Long term (current) use of insulin; Z79.82 Long term (current) use of aspirin
CPT/HCPCS: 70450; 71010; 80048; 81003; 82948; 84484; 85025; 85610; 85730; 87086; 93005; 99281; 99284

== ENCOUNTER → 2017-06-22 | Outpatient (CLI) | payer OTHER, BC ==
[~2017-06-22] VITALS: Ht 160 cm; Wt 58.5 kg
[~2017-06-22] MED LIST changes: +CIPRO500 MG PO
[2017-06-22 09:07] LABS: POINT-OF-CARE METER ID UU14174212
== END | disposition home or self-care (01) ==
LOC: OPR 07:50 → EDSTATUS 09:30 → OPR 09:30
PROVIDERS: Internal Medicine Gastroenterology
PROC: 0F2BX0Z Change Drainage Device in Hepatobiliary Duct, External Approach (ICD-10-PCS; principal; 2017-06-22)
DX: C25.9 Malignant neoplasm of pancreas, unspecified (principal); K83.1 Obstruction of bile duct; E11.65 Type 2 diabetes mellitus with hyperglycemia; E55.9 Vitamin D deficiency, unspecified; I10 Essential (primary) hypertension; E21.3 Hyperparathyroidism, unspecified; Z87.891 Personal history of nicotine dependence; Z79.82 Long term (current) use of aspirin; Z79.4 Long term (current) use of insulin
CPT/HCPCS: 75984; 82948; 87070; 87075; 87076; 87077; 87147; 87185; 87186; 87205; C1729; C1769; J0696; J3010; J7050

== ENCOUNTER 2017-07-08 13:11 | Emergency (ER) | payer OTHER, BC ==
[~2017-07-08] VITALS: Ht 160 cm; Wt 55.8 kg
[~2017-07-08 13:11] MED LIST changes: +ANTI-ITCH28 G1 TP; +ASCORBIC ACID500 M1 PO; +DILTIAZEM 24HR360 M1 PO; +MIRALAX17 GM PO; +NOVOLOG MI100 UNIT/2 SC; +PRILOSEC OTC20 MG PO; +ZYRTEC10 M3 PO
[2017-07-08 14:58] LABS: HEMATOCRIT 34.6 % (36.0-46.0); MCH 31.2 PG (29.0-34.0); MCHC 34.1 G/DL (30.0-36.0); MCV 91.5 FL (83-99); MEAN PLAT.VOLUME 10.7 uM^3 (9.5-12.4); NRBC (%) 2.4 /100 WBC (0-0); RBC DIS.WIDTH-CV 25.5 % (11.8-14.6); RBC DIS.WIDTH-SD 81.1 % (39-53); RED BLOOD COUNT 3.78 M/uL (3.80-5.20); WHITE BLOOD COUNT 15.3 K/uL (4.1-10.2)
[2017-07-08 15:00] LABS: BASOPHIL COUNT 0.1 K/uL (0-0.1); EOSINOPHIL (%) 0.7 % (0-5); EOSINOPHIL COUNT 0.1 K/uL (0-0.3); IMMATURE GRANULOCYTE (%) 1.4 % (0.0-0.7); IMMATURE GRANULOCYTE COUNT 0.2 K/uL; INSTRUMENT ABS NEUTROPHIL CT 9.3 K/uL; LYMPHOCYTE COUNT 3.3 K/uL (1.0-2.8); MONOCYTE (%) 15.3 % (3-12); MONOCYTE COUNT 2.3 K/uL (0-0.8); NEUTROPHIL COUNT 9.3 K/uL (1.8-6.4); PLATELET COUNT 330 K/uL (156-360)
[2017-07-08 15:09] LABS: CHLORIDE 106 mEq/L (99-109); POTASSIUM 3.7 mEq/L (3.7-5.4); SODIUM 137 mEq/L (136-147)
[2017-07-08 15:11] LABS: GLUCOSE 65 mg/dL (70-99)
[2017-07-08 15:13] LABS: ANION GAP 4 MEQ/L (2-14); TOTAL BILIRUBIN 0.9 mg/dL (0.0-1.0)
[2017-07-08 15:15] LABS: ALKALINE PHOSPHATASE 372 IU/L (3-129); GFR ESTIMATE (CALCULATED) 57 mL/min/
[2017-07-08 15:16] LABS: UREA NITROGEN (BUN) 12 mg/dL (9-23)
[2017-07-08 18:13] VITALS: BP 132/75
== END 2017-07-08 18:16 | disposition home or self-care (01) ==
LOC: EME 13:11
PROVIDERS: Emergency Medicine
PROC: 0W2GX0Z Change Drainage Device in Peritoneal Cavity, External Approach (ICD-10-PCS; principal; 2017-07-08)
DX: T85.520A Displacement of bile duct prosthesis, initial encounter (principal); Z85.07 Personal history of malignant neoplasm of pancreas; I10 Essential (primary) hypertension; E78.5 Hyperlipidemia, unspecified; E11.9 Type 2 diabetes mellitus without complications; Z79.4 Long term (current) use of insulin; Z79.82 Long term (current) use of aspirin; Z87.891 Personal history of nicotine dependence
CPT/HCPCS: 47534; 75984; 80053; 85025; 99281; 99285; C1729; C1769; J0696; J2405; J3010; J7050

== ENCOUNTER → 2017-08-09 | Outpatient (CLI) | payer OTHER, BC | END | disposition home or self-care (01) | LOC: RAD 13:01 | PROC: 0WJG3ZZ Inspection of Peritoneal Cavity, Percutaneous Approach (ICD-10-PCS; principal; 2017-08-09) | DX: C25.9 Malignant neoplasm of pancreas, unspecified (principal); R18.8 Other ascites; Z53.09 Procedure and treatment not carried out because of other contraindication | CPT/HCPCS: 49083; 82945; 84157; 87070; 87205; 89051 ==

== ENCOUNTER → 2017-09-04 | Outpatient (CLI) | payer OTHER, BC ==
[~2017-09-04] MED LIST changes: +ATIVAN0.5 MG PO
[2017-09-04 15:07] LABS: HEMATOCRIT 33.5 % (36.0-46.0); HEMOGLOBIN 11.7 G/DL (11.9-15.5); MCH 33.9 PG (29.0-34.0); MCHC 34.9 G/DL (30.0-36.0); MCV 97.1 FL (83-99); NRBC (%) 0.1 /100 WBC (0-0); PLATELET COUNT 254 K/uL (156-360); RED BLOOD COUNT 3.45 M/uL (3.80-5.20); WHITE BLOOD COUNT 14.3 K/uL (4.1-10.2)
== END | disposition home or self-care (01) ==
LOC: OPR 12:26 → EDSTATUS 14:00 → OPR 14:13 → RAD 15:00
PROVIDERS: Internal Medicine
PROC: 0FJ Hepatobiliary System and Pancreas, Inspection (ICD-10-PCS; principal; 2017-09-04)
DX: Z45.89 Encounter for adjustment and management of other implanted devices (principal); R18.8 Other ascites; Z53.09 Procedure and treatment not carried out because of other contraindication
CPT/HCPCS: 76705; 77001; 82948; 85027; 85610; 85730; C1769; J0690; J0696; J2250; J2310; J3010